=== PATIENT | female | born 1985 ===

== ENCOUNTER 2024-10-08 11:03 | Emergency (ER) | payer BC, SELFPAY ==
--- NOTE | ~2024-10-08 | XR_ITS ---
EXAMINATION: XR lumbar spine 2-3V DATE: 10/08/2024 12:48 INDICATION: Low back pain. TECHNIQUE: 3 views of lumbar spine including standing views were obtained. COMPARISON: None. FINDINGS: There is thoracolumbar dextroscoliosis. There is mild chronic anterior wedging of T12 and L 1 vertebral bodies, likely physiologic. Intervertebral disc heights are normal. There are endplate os teophytes at most levels. There is multilevel mild facet joint osteoarthritis. IMPRESSION: 1. Mild lumbar spondylosis. 2. Thoracolumbar dextroscoliosis. Reviewed, dictated and finalized at location A. ILER OPERATOR
[2024-10-08 11:20] VITALS: BP 161/93; PULSE 95; RESP 16; TEMP 36.5; O2SAT 100
--- NOTE | 2024-10-08 12:32 | ED_ITS ---
HPI - Back Pain/Injury General Chief Complaint: Back Pain/Injury Stated Complaint: Back Pain Time Seen by Provider: 10/08/24 12:30 Source: patient, RN notes reviewed and old records reviewed Mode of arrival: ambulatory Limitations: no limitations History of Present Illness HPI Narrative: 39 year old female accompanied by spouse with complaints of lumbar back pain with some radiation to the left buttock area and at times making her left leg feel achy. Patient reports that she was sitting in passenger side of front seat and turned around lifted child from back seat to sit on her lap while going through [employer] last evening and pain started after doing that. Patient reports that she fell down some steps when she was in college and has previous back pain issues.Patient reports that she took 1000mg of Tylenol this morning with minimal pain relief. Patient reports no bowel of bladder dysfunction or any saddle paraesthesia. MD elicited complaint: back pain Pertinent past history: prior back pain Onset (ago): day(s) (since last night,) Pain scale (0-10): 5 Treatments prior to arrival: acetaminophen Related Data Allergies Allergy/AdvReac Type Severity Reaction Status Date / Time No Known Allergies Allergy Verified 10/08/24 14:47 Review of Systems Review of Systems: CONSTITUTIONAL: Denies fever, chills, or sweats. EYES: Denies visual changes, redness, or discharge. ENT: Denies rhinorrhea, congestion, sore throat, or otalgia. CARDIOVASCULAR: Denies chest pain, palpitations, or edema. RESPIRATORY: Denies cough or dyspnea. GASTROINTESTINAL: Denies abdominal pain, nausea, vomiting, or diarrhea. GENITOURINARY: Denies dysuria or hematuria. SKIN: Denies rash or itching. MUSCULOSKELETAL:positive for left lower back pain into left buttock areas wit some intermittent achiness to left leg,, or myalgia. NEUROLOGIC: Denies headache, numbness, or weakness. PSYCHIATRIC: Denies anxiety or depression. All systems reviewed & are unremarkable except as noted in HPI and below PMFSH Past Medical History Medical History Mononucleosis ADHD Surgical History Surgical History Previous section Social History Social History Smoking status: Never smoker Alcohol intake: current Alcohol use details: rare social Substance use type: does not use Living arrangements: with family Gender identity (if verbalized by the patient): Female Comments At time of signature, agree with nursing past medical, surgical, social and family history. There is no relevant family history pertinent to the presenting complaint Exam Narrative: GENERAL: Well-appearing, well-nourished, and in some acute distress. HEAD: Normocephalic, atraumatic. EYES: PERRLA and EOMI. ENT: Nares clear, no rhinorrhea or epistaxis. Mucous membranes moist. NECK: Supple.no lymphadenopathy CHEST: Clear to auscultation. No respiratory distress.SAO2 100% on room air HEART: Regular rate and rhythm. No murmur heard. Normal peripheral pulses. ABDOMEN: Soft, nontender, nondistended, normal active bowel sounds. EXTREMITIES: Normal range of motion. No edema. Positive for lumbar back pain on left side with radiation to left buttock, at times makes left leg ache also, denies any tingling or numbness, Patient has strong pulses left foot, foot warm and pink. Difficulty finding any position of comfort, no saddle paraesthesia, no bowel or bladder dysfunction SKIN: Warm, dry, no rash. NEURO: No focal deficits. Alert and oriented x3. Course Course Emergency Course: Patient is aware of diagnosis, understands and agrees to treatment plan.? Anticipatory guidance given.? Patient agrees to follow-up as directed and is aware of reasons to seek care at the emergency department. Portions of this record may have been created with voice recognition software Level of Care: Express Care Visit Vital Signs Vital signs: Vital Signs Temperature 36.5 C 10/08/24 11:20 Pulse Rate 95 10/08/24 11:20 Respiratory Rate 16 10/08/24 11:20 Blood Pressure 161/93 H 10/08/24 11:20 Pulse Oximetry 100 10/08/24 11:20 Temperature 36.5 C 10/08/24 11:20 Pulse Rate 95 10/08/24 11:20 Respiratory Rate 16 10/08/24 11:20 Blood Pressure 161/93 H 10/08/24 11:20 Pulse Oximetry 100 10/08/24 11:20 Reviewed MDM - Back Pain/Injury Differential Diagnosis Differential diagnosis: Likely lumbar radiculopathy, strain of lumbar region and other (sciatica) Medical Records Attestation: I reviewed the patient's medical records. Imaging Data Attestation: I personally reviewed and interpreted this imaging study as follows: My impression: mild lumbar spondylosis thoracolumbar dextroscoliosis Radiologist's impression: [facility] [place] [address] XRay Report Signed Patient: Bijal Hankins : 1985 MR#: [id number] Age: 39 Acct:[id number] Loc: [facility] ADM Date: 10/08/24Attending Dr: Ordering Physician: Suzie Costa APRN Date of Service: 10/08/24 Procedure(s): XR lumbar spine 2-3V Accession Number(s): [id number] cc: Argelia Grace MD; Suzie Costa APRN~ EXAMINATION: XR lumbar spine 2-3V DATE: 10/08/2024 12:48 INDICATION: Low back pain. TECHNIQUE: 3 views of lumbar spine including standing views were obtained. COMPARISON: None. FINDINGS: There is thoracolumbar dextroscoliosis. There is mild chronic anterior wedging of T12 and L1 vertebral bodies, likely physiologic. Intervertebral disc heights are normal. There are endplate osteophytes at most levels. There is multilevel mild facet joint osteoarthritis. IMPRESSION: 1. Mild lumbar spondylosis. 2. Thoracolumbar dextroscoliosis. Reviewed, dictated and finalized at location A. [employer] VICE PRESIDENT Dictated By: Leonel Barnes MD 10/08/24 1255 Signed By: <Electronically signed by Leonel Barnes MD in OV> Critical Care Time Critical Care Time Critical Care Time: No Discharge Plan Discharge Clinical Impression: Back pain, lumbosacral Sciatica Qualifiers: Laterality: left Qualified Code(s): M54.32 - Sciatica, left side Patient Disposition: Home, Self-Care Condition: Stable Instructions: Antibiotic Form, Back Pain (ED) Additional Instructions: Ice and heat to the area for 20-30 minutes Gentle stretching exercises Gentle massage Caution with lifting, bending, stooping, twisting Avoid pushing, pulling take muscle relaxants as directed--caution drowsiness and no driving or alcohol Anti-inflammatory medicine as directed--take with food She may take the muscle relaxant and anti-inflammatory at the same time Ibuprofen 600 mg 3Times daily with food for the next 2-3 days Follow-up with your PCP if not improving in 5-7 days If your symptoms persist, change or worsen significantly before you can contact your personal physician then please, without delay, go to the emergency department for further evaluation. Follow-up with PCP in 7-10 days or sooner if needed Follow up with PCP soon in regards to your blood pressure which is elevated above threshold for referral. Blood pressure above 120/80 may indicate pre- hypertension. 161/93 Prednisone as directed with food Patient Language: Rwandan Prescriptions: New prednisone 20 mg tablet 20 mg PO BID Qty: 10 0RF Rx Instructions: take with food a.m. and early p.m. cyclobenzaprine 10 mg tablet 10 mg PO TID PRN (Reason: muscle spasm) Qty: 20 0RF Rx Instructions: may take up to 3 times, cannot drive while taking this medication. may take bedtime only No Action meclizine 25 mg tablet 25 mg PO TID PRN (Reason: dizziness) Qty: 20 0RF Follow-up/Referrals: Argelia Grace MD [Primary Care Provider] - Time of Disposition: 13:14 Quality Caleb Coma Scale Eyes: Open Verbal: Oriented and Alert Motor: Follows Commands [place] Coma Total Score: 15
== END 2024-10-08 13:21 | disposition home or self-care (01) ==
PROVIDERS: Emergency Provider Registered Nurse; PCP Family Medicine
DX: M54.50 Low back pain, unspecified (principal)
CPT/HCPCS: 72100; 99213; G0463

== ENCOUNTER 2025-09-04 15:21 | Emergency (ER) | payer BC, SELFPAY ==
[2025-09-04 15:36] VITALS: BP 119/79; PULSE 83; RESP 16; TEMP 36.3; O2SAT 99
--- NOTE | 2025-09-04 19:09 | ED_ITS ---
HPI - Back Pain/Injury General Chief Complaint: Back Pain/Injury Stated Complaint: Back Pain Time Seen by Provider: 09/04/25 17:13 Source: patient and RN notes reviewed Mode of arrival: ambulatory Limitations: no limitations History of Present Illness HPI Narrative: 40-year-old female patient presents today complaining of bilateral mid to low back pain x4 days that has worsened since yesterday. Back pain initially began after patient lifted her 8-year-old special needs child into a car seat while also twisting. Pain occasionally moves from right to left. Denies numbness or tingling in the extremities or genitalia. Denies loss of bowel or bladder control. Patient has tried some leftover Flexeril from a previous prescription without relief. Related Data Allergies Allergy/AdvReac Type Severity Reaction Status Date / Time No Known Allergies Allergy Verified 09/04/25 15:53 PMFSH Past Medical History Medical History Mononucleosis ADHD Surgical History Surgical History Previous section Social History Social History Smoking status: Never smoker Alcohol intake: current Alcohol use details: rare social Substance use type: does not use Living arrangements: with family Gender identity (if verbalized by the patient): Female Comments At time of signature, I have reviewed and agree with nursing past medical, surgical, social and family history unless otherwise noted. Please see nursing chart for further information. There is no relevant family history pertinent to the presenting complaint Exam Narrative: GENERAL: Well-appearing, well-nourished, and in mild pain distress. HEAD: Normocephalic, atraumatic. EYES: EOMI. No redness or drainage. Conjunctivae normal. ENT: Mucous membranes pink and moist. NECK: Normal AROM. CHEST: No respiratory distress. MUSCULOSKELETAL: No bony tenderness. No muscular tenderness of the thoracic or lumbar spine with palpation. Patient localizes her tenderness to the bilateral lower T spine extending to the entire L-spine. Pain with range of motion. Distal sensation intact. Saddle sensation intact. 5/5 strength in BLE EXTREMITIES: Normal range of motion. No edema. SKIN: Warm, dry, no rash. Capillary refill normal. Normal skin turgor. NEURO: No focal deficits. Alert and oriented x3. Gait steady. PSYCH: Normal affect. No signs of depression or anxiety. Course Course Level of Care: Express Care Visit Vital Signs Vital signs: Vital Signs Temperature 97.4 F L 09/04/25 15:36 Pulse Rate 83 09/04/25 15:36 Respiratory Rate 16 09/04/25 15:36 Blood Pressure 119/79 09/04/25 15:36 Pulse Oximetry 99 09/04/25 15:36 Temperature 97.4 F L 09/04/25 15:36 Pulse Rate 83 09/04/25 15:36 Respiratory Rate 16 09/04/25 15:36 Blood Pressure 119/79 09/04/25 15:36 Pulse Oximetry 99 09/04/25 15:36 Reviewed MDM - Back Pain/Injury MDM Narrative Medical decision making narrative: 40-year-old female patient presents today complaining of bilateral mid to low back pain x4 days that has worsened since yesterday. Back pain initially began after patient lifted her 8-year-old special needs child into a car seat while also twisting. Pain occasionally moves from right to left. Denies numbness or tingling in the extremities or genitalia. Denies loss of bowel or bladder con trol. Patient has tried some leftover Flexeril from a previous prescription without relief. Upon exam,No bony tenderness. No muscular tenderness of the thoracic or lumbar spine with palpation. Patient localizes her tenderness to the bilateral lower T spine extending to the entire L-spine. Pain with range of motion. Distal sensation intact. Saddle sensation intact. 5/5 strength in BLE. Patient's pain is likely due to muscle strain. She will be prescribed some methocarbamol and prednisone. Also recommend heat and anti-inflammatories such as Aleve or ibuprofen. She is neurovascularly intact this time. No imaging indicated at this time. Patient agrees with plan. Vital signs stable. Anticipatory guidance given. Differential Diagnosis Differential diagnosis: Likely sciatica and strain of lumbar region Critical Care Time Critical Care Time Critical Care Time: No Discharge Plan Discharge Clinical Impression: Low back strain Qualifiers: Encounter type: initial encounter Qualified Code(s): S39.012A - Strain of muscle, fascia and tendon of lower back, initial encounter Patient Disposition: Home Condition: Stable Instructions: Antibiotic Form, Low Back Strain (ED), Lower Back Exercises (ED) Additional Instructions: Please take all medications as prescribed. Rest. Use a heating pad to help relax your muscles. Do not drive within 8 hours of taking the methocarbamol as it can make you drowsy. Follow-up with your PCP in 3-4 days if symptoms are not improving. Please go to the ER immediately if symptoms worsen to include numbness or tingling in your legs or genitalia, loss of bowel or bladder control. Patient Language: Grenadian Prescriptions: New methocarbamol 500 mg tablet 500 mg PO QID PRN (Reason: muscle spasm) Qty: 30 0RF prednisone 20 mg tablet 40 mg PO DAILY 5 Days Qty: 10 0RF Follow-up/Referrals: Argelia Grace MD [Primary Care Provider, Family Practice] Stand Alone Forms: Work/School Release IP Time of Disposition: 17:27
== END 2025-09-04 17:28 | disposition home or self-care (01) ==
PROVIDERS: Emergency Provider Nurse Practitioner; PCP Family Medicine
DX: S39.012A Strain of muscle, fascia and tendon of lower back, initial encounter (principal); X50.0XXA Overexertion from strenuous movement or load, initial encounter
CPT/HCPCS: 99213; G0463